=== PATIENT | female | born 1975 | race Caucasian/White ===

== ENCOUNTER 2018-06-28 12:38 | Emergency (ER) | payer MEDICAID, SELFPAY ==
[2018-06-28 12:39] VITALS: BP 122/73; PULSE 81; RESP 18; TEMP 36.6; O2SAT 98; BMI 28.6
[2018-06-28 15:05] LABS: Absolute Lymphocyte Count 2.98 X10^3/ul (0.83-4.51); Absolute Neutrophil Count 5.3 X10^3/uL (2.0-7.7); Basophil# 0.05 X10^3/uL; Basophil% 0.5 % (0-1); Differential Indicated SCAN CRITERIA MET; Eosinophil# 0.21 X10^3/uL; Eosinophils% 2.2 % (0-5); Hematocrit 43.5 % (37-47); Hemoglobin 13.7 g/dl (12.0-15.0); Lymphocyte # 2.98 X10^3/ul (4.0); Lymphocyte % 31.9 % (19-41); Mean Corp Hgb Conc 31.5 g/gl (32-36); Mean Corpuscular Hgb 26.7 pg (27.0-32.0); Mean Corpuscular Volume 84.8 fL (81-99); Mean Platelet Vol. 9.7 fl (6.2-12.0); Monocyte# 0.75 X10^3/uL; Neutrophil # 5.33 X10^3/uL (2.7-7.7); Neutrophil % 57.2 % (47-70); POSITIVE COUNT NO; POSITIVE DIFFERENTIAL NO; POSITIVE MORPHOLOGY YES; Platelet Count 329 K/mm3 (150-450); RBC Distribution Width CV 20.3 % (11.6-14.6); RBC Distribution Width SD 62.2 fl (35.1-43.9); Red Blood Count 5.13 M/mm3 (4.2-5.4); White Blood Count 9.3 K/mm3 (4.4-11.0)
[2018-06-28 15:18] LABS: ALB/GLOB Ratio 1.1 RATIO (0.9-2.4); AST(SGOT) 14 U/L (15-37); Alanine Aminotransfer ALT/SGPT 24 U/L (13-56); Albumin, Serum 3.9 g/dL (3.2-5.0); Alkaline Phosphatase 68 U/L (45-117); Anion Gap 8 (5-15); BUN 25 mg/dL (7-18); BUN/Creat Ratio 27.2 RATIO (10-20); Calcium,Total 8.6 mg/dL (8.5-10.1); Chloride 105 mmol/L (98-107); Creatinine, Serum 0.92 mg/dL (0.55-1.02); EST Glomerular Filtration Rate 70 mL/min (>60); Est Glom Filt Rate - Afr Amer 85 mL/min (>60); Estimated Creatinine Clearance 73.05 ml/min; Globulin 3.6 g/dL (2.2-4.2); Glucose 89 mg/dL (74-106); Potassium 3.9 mmol/L (3.5-5.1); Protein, Total 7.5 g/dL (6.4-8.2); Sodium Level 142 mmol/L (136-145)
[2018-06-28 15:22] LABS: Anisocytosis 1+; Platelet Estimate ADEQUATE (ADEQ); Platelet Morphology LARGE
--- NOTE | 2018-06-28 15:22 | ED.VISSUMM ---
- ER Visit Summary Date of Service: 06/28/18 Chief Complaint: Tired History of Present Illness: The patient is a 42 F presenting with fatigue for the last 2-3 days. She has no specific complaints, just feels that she is very tired and has not been sleeping much because she started using cocaine and marijuana again. She states that she has been working 18-19 hours per day at 2 different jobs and pulling double shifts. She has not been sleeping very much from that standpoint and she relapsed on to cocaine and marijuana after being clean for 10 years. She states that she has been staying awake most of the nights using drugs and therefore is much more tired during the day. She denies any suicidal thoughts or ideation. She has a history of depression/ anxiety but denies any changes in these symptoms. She is not concerned at all for harming herself and denies any significant increase in depression or thoughts of harming others. She basically thinks that she is overdoing it and needs a few days off. Physical Examination: Vitals are within normal limits. She is not in distress. Neck is supple. Heart tones are regular and without murmur. Lungs are clear bilaterally. Abdomen is soft and nontender. No focal or lateralizing neuro findings. Speech is clear. Thought content is normal. She does not appear intoxicated. She has no suicidal thoughts or ideation. She is future oriented. Test Results: CBC and CMP both within normal limits Emergency Department Course and Treatment: She is not in distress. No evidence of infection. Neurologic exam is normal. No suicidal thoughts or ideation. Does not appear to be at risk for self-harm. She looks well. I feel she can safely be discharged home and follow closely as an outpatient. I talked with her at length regarding her drug use and she is not interested in a formal detox/rehabilitation program at this time and is confident that she can quit on her own. She states that she has a strong family support system and several people that she can call on for help. She will return if she is any worse or if she has any thoughts of depression/self-harm. Treatment Plan: Follow-up as an outpatient Disposition: Home stable condition Impression: Initial encounter fatigue, drug abuse This note was generated with [employer] software. It may contain incorrect words, spelling, and punctuation that were not noted in review of the chart prior to signing ED Disposition - Plan for ED Patient: Chief Complaint: Fatigue Instructions: ED Weakness [facility] Referrals: Vikas Parra MD [Primary Care Provider] - 2 Days
[2018-06-28 15:30] VITALS: BP 128/72; PULSE 83; RESP 16; O2SAT 98
== END 2018-06-28 15:39 | disposition home or self-care (01) ==
PROVIDERS: Emergency Provider Emergency Medicine; Family Provider Family Medicine; PCP Family Medicine
DX: R53.83 Other fatigue (principal); F14.10 Cocaine abuse, uncomplicated; F12.10 Cannabis abuse, uncomplicated; K21.9 Gastro-esophageal reflux disease without esophagitis; F41.9 Anxiety disorder, unspecified; F32.9 Major depressive disorder, single episode, unspecified; E03.9 Hypothyroidism, unspecified; Z79.899 Other long term (current) drug therapy; Z72.0 Tobacco use
CPT/HCPCS: 80053; 85025; 99283

== ENCOUNTER 2019-06-08 08:28 | Emergency (ER) | payer MEDICAID, SELFPAY ==
[2019-06-08 08:28] VITALS: BP 136/74; PULSE 79; RESP 18; TEMP 36.6; O2SAT 100; BMI 31.3
--- NOTE | 2019-06-08 08:36 | RAD_ITS ---
STUDY: X-RAY - RIGHT KNEE REASON FOR EXAM: Female, 43 years old. Several day history of knee pain. No known injury. TECHNIQUE: 4 view(s) of the knee. COMPARISON: None. FINDINGS: Normal visualized distal femur. Normal visualized proximal tibia and fibula. Normal proximal tibiofibular articulation. Normal medial femorotibial compartment. Normal lateral femorotibial compartment. Normal patellofemoral articulation. Small joint effusion. RAD/Knee 4 or More Views IMPRESSION: Small joint effusion. Electronically Signed: Delfino Salazar, at 9:28 EDT , Service support ,
--- NOTE | 2019-06-08 08:36 | ED.DCSUM_ITS ---
History of Present Illness Chief Complaint: Lower Extremity Injury Informant: Patient Occurred: Weeks Onset: Days, Weeks Context: Gradual Onset Timing: Intermittent Quality of Pain: Aching Current Severity: 5/10 Associated Symptoms: Negative for: Parasthesia, Weakness, Loss of Funtion Narrative: The patient presents to the emergency department with atraumatic right knee pain. She states that she has underlying Achilles tendon difficulties. She is been wearing a boot orthosis. She states since then, she feels like her knee has been having problems. She states from time to time, and will give out on her. It is not locking. She states that it is worse if she bears weight for a long period of time. She denies any direct trauma. She denies any fevers or chills. She has been taking anti-inflammatories. Prior similar symptoms: No Recent Illness/Hospitalization: No Past Medical History - Allergies and Home Meds Allergies/Adverse Reactions: Allergies Sulfa (Sulfonamide Antibiotics) Adverse Reaction (Verified 06/08/19 08:39) Other Primary Care Physician: Vikas Parra MD [Primary Care Provider] - Prior records reviewed: Yes Past Medical History: - - arthritis Surgical History: no surgical history Smoking Status: Current every day smoker Alcohol: None Drugs: None Review of Systems General: Denies: Chills, Fever, Sweats Eyes: Denies: Visual changes - bilaterally, Diplopia ENT: Denies: Rhinorrhea, Sore throat Cardiovascular: Denies: Chest pain, Palpitations Respiratory: Denies: Dyspnea, Cough, Dyspnea on exertion Gastrointestinal: Denies: Abdominal pain, Nausea, Vomiting, Diarrhea, Melena, Hematochezia Genitourinary: Denies: Dysuria, Hematuria, Frequency Musculoskeletal: Reports: Arthralgias, Extremity Pain Skin: Denies: Rash, Wounds Neurological: Denies: Headache, Weakness, Numbness Physical Exam Vital Signs/Narrative: Vital Signs Temp Pulse Resp BP Pulse Ox 06/08/19 08:28 97.9 F 79 18 136/74 H 100 Inital Vital Signs reviewed: Yes - Extremity Exam Right Femur: Negative for: Abrasion, Contusion, Deformity, Edema, Hematoma, Limited ROM, - Left Femur: Negative for: Abrasion, Contusion, Deformity, Edema, Hematoma, Limited ROM, - Right Knee: Limited ROM - Patient is a small effusion in the medial aspect of the knee. Extension and flexion are preserved. There is no gross laxity. There is no erythema. Drawer testing is negative. Pulses are normal. Right Tib fib: Negative for: Abrasion, Contusion, Deformity, Edema, Hematoma, Limited ROM, - Left Tib Fib: Negative for: Abrasion, Contusion, Deformity, Edema, Hematoma, Limited ROM, - Right Ankle: Negative for: Abrasion, Contusion, Deformity, Edema, Hematoma, Limited ROM, - Left Ankle: Negative for: Abrasion, Contusion, Deformity, Edema, Hematoma, Limited ROM, - General: Well nourished, Well developed Head: Normocephalic, Atraumatic Eyes: Perrl, EOMI ENT: No Trauma, Moist Mucous Membranes Neck: Nontender, Full ROM Cardiovascular: Regular rate, Regular rhythm, No murmurs Respiratory: No distress, CTA bilaterally, Chest nontender Abdomen: Soft, Nontender, Nondistended, Normal bowel sounds Back: Nontender Skin: Normal color, No rash Neurological: Alert, Oriented x3, Cranial nerves II-XII grossly intact, Normal Strength, Normal Sensation Psychological: Normal affect Diagnostic/Tx/Re-eval Clinical Impression(s) from Imaging Studies Knee X-Ray 06/08/19 08:36 IMPRESSION: Small joint effusion. Electronically Signed: Delfino Martin, at 9:28 EDT , Service support , - Medical Decision Making The patient presents to the emergency department with right knee pain. Flexion and extension are preserved. There is a small effusion, but no erythema. My suspicion is that this is likely overuse she has been wearing a boot orthosis and it is affected her gait. Plain films were obtained which demonstrate a sma ll effusion, but no evidence of acute fracture. The patient was placed in an Mick wrap and will be continued on anti-inflammatories. She is comfortable with this plan of care and will be discharged home. Impression 1. Right knee effusion ED Disposition - Plan for ED Patient: Instructions: Knee Effusion Prescriptions: Naproxen [Naprosyn] 500 mg PO BID #14 tab Prescription Printed Referrals: Vikas Parra MD [Primary Care Provider] -
== END 2019-06-08 09:52 | disposition home or self-care (01) ==
PROVIDERS: Emergency Provider Emergency Medicine; Family Provider Family Medicine; PCP Family Medicine
DX: M25.461 Effusion, right knee (principal); M25.561 Pain in right knee; F17.200 Nicotine dependence, unspecified, uncomplicated
CPT/HCPCS: 73564; 99281; 99282

== ENCOUNTER 2019-11-29 16:03 | Emergency (ER) | payer MEDICAID, SELFPAY ==
[2019-11-29 16:04] VITALS: BP 133/80; PULSE 104; RESP 16; TEMP 35.9; O2SAT 97; BMI 35.2
--- NOTE | 2019-11-29 16:22 | ED.VISSUMM ---
- ER Visit Summary Date of Service: 11/29/19 Chief Complaint: Abscess History of Present Illness: The patient is a 44 F presenting with abscess left side. Patient has a cyst that she states she has had for the past 3 years. She states it has been infected requiring drainage in the past. She was told in the past that it may come back. She has not followed up with a surgeon. She states for the past 2 days she has had increasing pain and redness. Denies fever or other complaints. Physical Examination: Vitals are stable. Patient is afebrile. Alert no acute distress. HEENT exam is unremarkable. Neck is supple. Lungs are clear and equal bilaterally. Heart is regular rate and rhythm. Abdomen is soft nontender nondistended. 3 cm fluctuant abscess left lateral upper abdomen. No surrounding erythema. Extremities are unremarkable. Skin is warm and dry. No focal neurologic deficit. Remainder of exam is unremarkable. Emergency Department Course and Treatment: I&D was performed. Anesthetized with lidocaine. Incised with 11 blade. Moderate amount of pus was drained. Irrigated with saline. Patient tolerated this well. She is given general surgery referral. Advised to return to ED for worsening complaints. Disposition: Discharge Impression: Abscess, I&D This note was generated with [employer] dictation software. It may contain incorrect words, spelling, and punctuation that were not noted in review of the chart prior to signing ED Disposition - Plan for ED Patient: Instructions: ABSCESS, Incision and Drainage Prescriptions: Clindamycin [Cleocin] 300 mg PO 4X/DAY #80 cap Prescription Printed Referrals: Daljit De Anda MD [STAFF PHYSICIAN] -
--- NOTE | 2019-11-29 16:26 | ED.DEP ---
ED Disposition - Plan for ED Patient: Instructions: ABSCESS, Incision and Drainage Prescriptions: Clindamycin [Cleocin] 300 mg PO 4X/DAY #80 capsule Referrals: Daljit De Anda MD [STAFF PHYSICIAN] -
[2019-11-29] MEDS: Clindamycin HCl 150 MG Capsule 300 MG PO (16:31)
== END 2019-11-29 16:59 | disposition home or self-care (01) ==
LOC: ED 16:50
PROVIDERS: Emergency Provider Emergency Medicine
DX: L02.211 Cutaneous abscess of abdominal wall (principal); Z87.891 Personal history of nicotine dependence
CPT/HCPCS: 10060; 99283

== ENCOUNTER → 2020-08-04 15:29 | Outpatient (CLI) | payer MEDICAID, SELFPAY | PROVIDERS: PCP Family Medicine; Referring Provider Family Medicine; Visit Provider Family Medicine | DX: Z72.51 High risk heterosexual behavior (principal) | CPT/HCPCS: 36415 ==

== ENCOUNTER → 2020-08-15 12:51 | Outpatient (CLI) | payer MEDICAID, SELFPAY ==
[2020-08-15 14:15] LABS: HIV - WCH Non-Reactive (Nonreactive)
== END ==
PROVIDERS: PCP Family Medicine; Visit Provider Family Medicine
DX: Z72.51 High risk heterosexual behavior (principal)
CPT/HCPCS: 36415; 86703

== ENCOUNTER 2021-02-14 15:00 | Outpatient (RCR) | payer MEDICAID, SELFPAY ==
--- NOTE | 2021-01-30 07:43 | HP.PTEVAL_ITS ---
Patient's Visit Information DANIE PATTERSON is a 45 year old F referred to Physical Therapy by SLADE ARMENTA with a diagnosis of R achilles tendonitis, L plantar fascitis. Date of Evaluation: 01/24/21 Physical Therapist: Clovis Upton DPT - Visit Plan Frequency: 2-3x /Week Duration: 4-6 Weeks Plan: Start with B Df stretching (frequently), R eccentric strength of achilles/calf. L foot intrinsic strengthening. May use DN, cross friction, and foot/ankle mobilization to reduce initial symptoms. - Subjective Pt. is here today for her initial evaluation with diagnosis of R achiles tendonitis and L plantar fascitis. Pt. reports having R achilles pain for awhile, ~1 year, but is now having increased L plantar fasciatis. She believes her L foot pain started when she was wearing a CAM boot for her R foot. No mech of injury otherwise, no trauma noted. She did buy new shoes which has helped a bit. Pt. has not been stretching or doing any exercises for either foot. Pt. initial mentioned doing aquatic therapy, but there was nothing noting this on the script. Pt. works at [employer], but has been off work for a week or so due to her foot pain. Pt. is to go back to work in a few weeks at light duty progressing to full. Pt. denies N/T in either foot. Pt. is hopeful to reduce her symptoms in order to get back to work with out limitations. - Pain R achilles Pain Intensity (Out of 10): 3 Pain Intensity Range: 1, 6 L plantar fascia Pain Intensity (Out of 10): 3 Pain Intensity Range: 1, 8 - Objective POSTURE: pt. has normal wt. shift between bilateral LEs. Pt. has B equinus foot with B hindfoot vlagus. Pt. has normal DERICK in stance. PALPATION: Pt. is tender at R achilles tendon from attachment to muscle-tendon junction. She is also tender at L medial plantar fascia and longitudinal arch. No calcaneal pain or achilles pain on L side. NEURO: normal throughout bilateral LEs. ROM: Pt. has normal ROM of bilateral ankles, except tightness with B DF 10deg on R and 8deg of L. Pt. reports increased pain with overpressure into DF. GAIT: Pt. ambulates with increased toeing bilaterally. Pt. has early heel off with B feet during pre swing. STAIRS: early heel off with descending bilaterally. SPECIAL TESTING: L + windlass testing. - Goals Goal 1:: LTG: Pt. to be I with HEP. Goal Time Frame: 4-6 Weeks Goal 2:: STG: Pt. to have decreased pain to 0-2/10 pain in B feet/ankles with initial walking in AMs. Goal Time Frame: 2-4 Weeks Goal 3:: LTG: pt. to ambulate unlimited distances without increase in symptoms in either feet/ankle. Goal Time Frame: 4-6 Weeks Goal 4:: LTG: pt. to have atleast 15deg of B ankle DF. Goal Time Frame: 4-6 Weeks Goal 5:: LTG: pt. to resume all work duties without increase in symptoms. Goal Time Frame: 4-6 Weeks - Rehabilitation Potential Physical Therapy Diagnosis: Pt. has signs and symptoms consistent with R achilles tendonitis, L plantar fascitis. Pt. is stiff through bilateral calves and has increased pain with DF and initial walking. Pt. would beneift from PT to work on stretching, tissue remodeling with eccentrics and with modalitis to reduce initial symptoms. Rehabilitation Potential: Excellent - Anticipated Interventions Patient/Client Instruction: Educate patient on: Condition, Plan of Care, Risk Factors, Benefits of Fitness Program For the Purpose of:: To facilitate caregiver knowledge, To improve self management, To prevent re-injury, To improve ability to perform tasks related to life management, To improve tolerance to ADL's Therapeutic Exercise to Include: Strength training, Power training, Endurance training, Postural training, Flexibilty training, Gait and locomotor training, Passive ROM, Active ROM For the Purpose of:: To decrease pain, To decrease swelling/inflammation, To increase ROM, To improve nutrient delivery to tissue, To increase oxygenation perfusion, To improve muscle performance and motor function, To improve ability to perform ADL's, To improve gait and locomotor functions, To improve health of tissue, To decrease soft tissue restriction, To increase flexibility/ROM Manual Therapy Techniques to Include: Scar massage, Mobilization, Passive ROM, Functional dry needling, Soft tissue mobilization Comment: cross friction massage For the Purpose of:: To decrease pain, To decrease swelling/inflammation, To increase ROM, To improve muscle performance and motor function, To improve health of tissue, To decrease soft tissue restriction, To increase flexibility/ROM Thank you for the opportunity to evaluate your patient. For Medicare and Medicare HMO plans, please review the plan of care and approve it. It will need to be FAXED BACK to us at [phone] for Medicare purposes. For Medicare only, by signing this I certify the plan of care. Please let me know if there are questions or concerns regarding this plan of care. Physician Signature: Date:
--- NOTE | 2021-02-10 10:19 | HP.PTREVAL ---
SLADE ARMENTA, It has been my pleasure to treat DANIE PATTERSON over the last 3 visits for R achilles tendonitis, L plantar fascitis. Please see the progress note below for an update on the physical therapy plan of care! Subjective: Pt. reports overall I feeling a little better. She reports stretching at home better this week. She did miss her last appointment do to being sick. She reports that she really wants to go back to work. She is hoping to work atleast 5 hours a day. Objective/Function: Pt. reports decreased pain post PT. Pt. is to stretch a lot at home. I showed her some stretching she could do at work as well. She really wanted to get back to work for financial reasons and to stay active. She has imrpoved with her ROM and tolerance. She did mention about doing aquatic therapy. She thinks this may allow her to walk better. I still think that stretching, modalities progressing to strengthening would be the best course. I am okay with doing the stretching and strengtheing in the aquatic setting, but did mention that getting in pool independently would sally the best course of action. Plan Plan: Start with B Df stretching (frequently), R eccentric strength of achilles/calf. L foot intrinsic strengthening. May use DN, cross friction, and foot/ankle mobilization to reduce initial symptoms. Goals Goal 1:: LTG: Pt. to be I with HEP. Goal Time Frame: 4-6 Weeks Goal 2:: STG: Pt. to have decreased pain to 0-2/10 pain in B feet/ankles with initial walking in AMs. Goal Time Frame: 2-4 Weeks Goal 3:: LTG: pt. to ambulate unlimited distances without increase in symptoms in either feet/ankle. Goal Time Frame: 4-6 Weeks Goal 4:: LTG: pt. to have atleast 15deg of B ankle DF. Goal Time Frame: 4-6 Weeks Goal 5:: LTG: pt. to resume all work duties without increase in symptoms. Goal Time Frame: 4-6 Weeks Anticipated Interventions Patient/Client Instruction: Educate patient on: Condition, Plan of Care, Risk Factors, Benefits of Fitness Program For the Purpose of:: To facilitate caregiver knowledge, To improve self management, To prevent re-injury, To improve ability to perform tasks related to life management, To improve tolerance to ADL's Therapeutic Exercise to Include: Strength training, Power training, Endurance training, Postural training, Flexibilty training, Gait and locomotor training, Passive ROM, Active ROM For the Purpose of:: To decrease pain, To decrease swelling/inflammation, To increase ROM, To improve nutrient delivery to tissue, To increase oxygenation perfusion, To improve muscle performance and motor function, To improve ability to perform ADL's, To improve gait and locomotor functions, To improve health of tissue, To decrease soft tissue restriction, To increase flexibility/ROM Manual Therapy Techniques to Include: Scar massage, Mobilization, Passive ROM, Functional dry needling, Soft tissue mobilization Comment: cross friction massage For the Purpose of:: To decrease pain, To decrease swelling/inflammation, To increase ROM, To improve muscle performance and motor function, To improve health of tissue, To decrease soft tissue restriction, To increase flexibility/ROM Please do not hesitate to contact me at [phone] by phone or if you have questions or concerns regarding this new plan of care! Sincerely, Clovis Upton DPT
== END 2021-02-14 19:00 | disposition home or self-care (01) ==
LOC: PT 15:00
PROVIDERS: PCP Family Medicine
DX: M76.61 Achilles tendinitis, right leg (principal)
CPT/HCPCS: 97035; 97110; 97140; 97161

== ENCOUNTER 2022-10-26 06:59 | Emergency (ER) | payer MEDICAID, SELFPAY ==
[2022-10-26 07:00] VITALS: BP 145/118; PULSE 62; RESP 16; TEMP 35.8; O2SAT 100; BMI 29.2
--- NOTE | 2022-10-26 07:39 | ED.VIS.GI ---
HPI HPI - GI History of Present Illness Chief Complaint: Abd Pain Informant: patient Abdominal Pain/Flank Pain Onset: Weeks (1.5) Context: Gradual Onset Timing: Waxes and wanes Quality: Sharp and Stabbing Location: LLQ Worsened by: Nothing Relieved by: Nothing Nausea/Vomiting/Emesis GI Symptom: Negative for Nausea or Vomiting Diarrhea/Melena/Hematochezia GI Symptom: Negative for Diarrhea or Hematochezia Associated Symptoms Associated Symptoms: Negative for Dysuria, Frequency or Hematuria Narrative Narrative: Patient presents with left lower quadrant abdominal pain that has been gradually getting worse over the past week and a half. Patient states it was intermittent now it is more constant. Patient states that it waxes and wanes. Patient describes her pain as sharp. Patient states it is localized to the left lower quadrant but radiates into her back. Patient states nothing makes it worse and nothing makes it better. Patient states she felt like she was constipated and tried laxatives with no improvement. Patient denies any nausea or vomiting. Patient denies any diarrhea. Patient states her stools have been dark but she is on iron. Patient denies any dysuria or hematuria. [facility] Medical History ADD (attention deficit disorder) Anxiety Bipolar 1 disorder Hyperlipidemia Home Medications acyclovir 400 mg tablet (Zovirax) 400 mg PO DAILY 06/28/18 [History Last Taken Unknown] omeprazole 40 mg capsule,delayed release 40 mg PO DAILY 06/28/18 [History Last Taken Unknown] bupropion HCl 100 mg tablet 350 mg PO DAILY 11/29/19 [History Last Taken Unknown] clindamycin HCl 150 mg capsule 300 mg PO 4X/DAY #80 caps 11/29/19 [Rx Last Taken Unknown] clonidine HCl 0.1 mg tablet 0.1 mg PO BID 11/29/19 [History Last Taken Unknown] doxepin 75 mg capsule 75 mg PO DAILY 11/29/19 [History Last Taken Unknown] oxcarbazepine 300 mg tablet 300 mg PO BID 11/29/19 [History Last Taken Unknown] varenicline 1 mg tablet 1 mg PO BID 11/29/19 [History Last Taken Unknown] hydrocodone-acetaminophen 5-325mg 5mg-325mg 1 tab PO Q6H PRN PRN Pain 3 days #10 TABLETS 10/26/22 [Rx Last Taken Unknown] Allergy/AdvReac Type Severity Reaction Status Date / Time Sulfa (Sulfonamide AdvReac Other Verified 10/26/22 07:03 Antibiotics) Surgical History Hx of section Hx of cholecystectomy Hx of tubal ligation Social History Smoking Status: Current some day smoker tobacco type: cigarettes ROS ROS ED Constitutional Constitutional ED: Denies chills or fever(s) Eyes Eyes: Denies blurry vision or change in vision ENT ENT ED: Reports rhinorrhea; Denies sore throat Cardiovascular Cardiovascular: Denies chest pain or palpitations Respiratory/Chest Respiratory/Chest: Reports cough; Denies dyspnea Gastrointestinal Gastrointestinal: Reports abdominal pain and constipation; Denies nausea or vomiting Genitourinary Genitourinary ED: Denies dysuria or hematuria Musculoskeletal Musculoskeletal: Reports back pain; Denies neck pain Integumentary Denies abscess or rash Neurologic Neurologic: Reports headache(s); Denies weakness Allergic/Immunologic Allergic/Immunologic ED: Denies mouth swelling or urticaria EXAM Physical Exam Const Vital Signs: 10/26/22 07:00 10/26/22 13:52 Temperature 96.4 F L Temperature Source Temporal Pulse Rate 62 65 Respiratory Rate 16 16 Blood Pressure 145/118 H 131/80 H Blood Pressure Mean 127 97 Pulse Ox 100 100 Oxygen Delivery Method Room Air Room Air Positive well nourished and well developed General Appearance ED: well developed HEENT Reports moist mucous membranes Neck supple and no JVD Resp normal respiratory effort and clear to auscultation bilaterally Cardio regular rate, regular rhythm and no murmurs GI normal to inspection, nondistended, normoactive bowel sounds Palpation: soft and tender LLQ; Negative for guarding or rebound tenderness present Extremity normal to inspection General Extremety ED: Negative for edema or tenderness General Extremity: Negative for edema Neuro oriented x3, CN's II-XII intact bilaterally and no sensory deficits noted Sensorium / Orientation: alert Motor Exam: strength 5/5 throughout Psych mental status grossly normal Skin no rashes or lesions noted MDM MDM MDM Narrative Medical decision making narrative: Patient was given IV fluids. Patient was given morphine and Zofran. CBC was within normal limits. Comprehensive metabolic profile was within normal limits. Urinalysis does not show any evidence of urinary tract infection or hematuria. Lipase was normal. CT scan of the abdomen and pelvis was obtained. There is a nonspecific fluid collection in the fundus of the uterus. This could be fluid collection or abscess. Recommendation for follow-up with pelvic ultrasound and test was recommended. This was interpreted by the radiologist and reviewed by myself. Serum hCG was obtained and was negative. Pelvic ultrasound was obtained and showed a 2.4 x 3.3 x 1.9 cm hypoechoic area within the uterus. This could be a cyst or hematoma. Abscess is less likely. Given the patient's normal white blood cell count and labs, I do not feel that antibiotics are necessary at this time. Patient was given a prescription for a short course of [place]. Patient was instructed to follow-up with her [employer] in 3 to 5 days. Patient understood and was agreeable with the plan. All questions were answered. Lab Data Attestation: I reviewed the patient's lab results. Labs: Laboratory Results - last 24 hr 10/26/22 10/26/22 10/26/22 07:50 08:00 08:00 WBC 8.6 RBC 4.82 Hgb 14.6 Hct 43.7 MCV 90.7 MCH 30.3 MCHC 33.4 RDW Std Deviation 44.7 H RDW Coeff of [place] 13.2 Plt Count 330 MPV 9.4 Immature Gran % (Auto) 0.400 Neut % (Auto) 72.0 H Lymph % (Auto) 20.2 [place] % (Auto) 5.7 Eos % (Auto) 1.2 Baso % (Auto) 0.5 Absolute Neuts (auto) 6.2 Absolute Lymphs (auto) 1.73 Nucleated RBC % 0 Sodium 137 Potassium 3.5 Chloride 103 Carbon Dioxide 29.0 Anion Gap 5 BUN 15 Creatinine 0.82 Estim Creat Clear Calc 81.59 Est GFR (MDRD) Af Amer 96 Est GFR (MDRD) Non-Af 79 BUN/Creatinine Ratio 18.4 Glucose 94 Calcium 8.7 Total Bilirubin 0.40 AST 10 L ALT 21 Alkaline Phosphatase 71 Total Protein 7.6 Albumin 3.7 Globulin 3.9 Albumin/Globulin Ratio 0.9 Lipase 87 Serum , Qual Urine Color Yellow Urine Clarity Sl. Cloudy Urine pH 7.0 Ur Specific [place] 1.015 Urine Protein 15 H Urine Glucose (UA) Normal Urine Ketones 5 H Urine Occult Blood Negative Urine Nitrite Negative Urine Bilirubin Negative Urine Urobilinogen Normal Ur Leukocyte Esterase 25 H Urine RBC 0 SEEN Urine WBC 0-5 SEEN Ur Squamous Epith Cells 0-5 SEEN Urine Bacteria 1+ Urine Mucus 0 SEEN 10/26/22 10:30 WBC RBC Hgb Hct MCV MCH MCHC RDW Std Deviation RDW Coeff of [place] Plt Count MPV Immature Gran % (Auto) Neut % (Auto) Lymph % (Auto) [place] % (Auto) Eos % (Auto) Baso % (Auto) Absolute Neuts (auto) Absolute Lymphs (auto) Nucleated RBC % Sodium Potassium Chloride Carbon Dioxide Anion Gap BUN Creatinine Estim Creat Clear Calc Est GFR (MDRD) Af Amer Est GFR (MDRD) Non-Af BUN/Creatinine Ratio Glucose Calcium Total Bilirubin AST ALT Alkaline Phosphatase Total Protein Albumin Globulin Albumin/Globulin Ratio Lipase Serum , Qual NEGATIVE Urine Color Urine Clarity Urine pH Ur Specific [place] Urine Protein Urine Glucose (UA) Urine Ketones Urine Occult Blood Urine Nitrite Urine Bilirubin Urine Urobilinogen Ur Leukocyte Esterase Urine RBC Urine WBC Ur Squamous Epith Cells Urine Bacteria Urine Mucus Radiography Diagnostic Testing: Clinical Impression(s) from Imaging Studies Abdomen/Pelvis CT 10/26/22 07:42 IMPRESSION: 1. Nonspecific 3.6 x 2.3 cm peripherally enhancing fluid attenuation area in the fundal uterus. This could represent loculated fluid within the endometrium although abscess or developing gestational sac cannot be excluded. Further assessment with pelvic ultrasound is recommended. 2. No other acute findings in the abdomen or pelvis. Electronically Signed: Abilio Hoyos, at 10:12 EST , Transvaginal US 10/26/22 11:22 IMPRESSION: 1. 2.4 x 3.3 x 1.9 cm hypoechoic area in the uterus. This appears to be within the uterus although endometrial inclusion is difficult to entirely assess. Given patient''s history of prior ablation, findings could represent a complicated cyst or hematoma in setting of post ablation changes although abscess is difficult to entirely exclude. Additional considerations include uterine fibroid. Comparison with prior pelvic imaging if available is recommended. 2. 3.0 cm likely left ovarian hemorrhagic cyst. Follow-up in 2-3 menstrual cycles recommended. 3. Normal flow to both ovaries. Electronically Signed: Abilio Hoyos, at 13:52 EST , Discharge Plan Triage Chief Complaint: Abd Pain Other Complaint: Other, Pain/Inj ED Provider: Larry Adam Dx/Rx/DC Orders Clinical Impression: Pelvic pain, Cyst of uterus Instructions: ED Pelvic Pain, Unknown Cause Prescriptions: New hydrocodone-acetaminophen [hydrocodone-acetaminophen] 5-325 mg tablet 1 tab PO Q6H PRN PRN (Reason: Pain) 3 Days Qty: 10 0RF No Action acyclovir [Zovirax] 400 MG tablet 400 mg PO DAILY omeprazole 40 MG capsule,delayed release(DR/EC) 40 mg PO DAILY clonidine HCl 0.1 MG tablet 0.1 mg PO BID Label Comments: take 1 tablet by mouth twice a day doxepin 75 MG capsule 75 mg PO DAILY oxcarbazepine 300 MG tablet 300 mg PO BID bupropion HCl 100 MG tablet 350 mg PO DAILY varenicline 1 MG tablet 1 mg PO BID Label Comments: take 1 tablet by mouth twice a day clindamycin HCl 150 MG capsule 300 mg PO 4X/DAY Qty: 80 0RF Primary Care Provider: Care Physician,No Primary Referrals: Angie Pisano MD [Med Staff - Active Staff] - 3-5 Days Care Physician,No Primary [Primary Care Provider] - Disposition Disposition: Home, Self Care
--- NOTE | 2022-10-26 07:42 | CT_ITS ---
INDICATION: Abdominal pain -- IV PO Contrast EXAMINATION: CT ABDOMEN AND PELVIS WITH CONTRAST - CT Abdomen And Pelvis W/ Contrast Injection TECHNIQUE: Helically acquired images were obtained of the abdomen and pelvis following IV contrast. A radiation dose optimization technique was used for this scan. IV Contrast dosage and agent: 100 cc of ISOVUE-300 Oral contrast: GASTROGRAFIN COMPARISON: None. FINDINGS: Lower thorax: Visualized lung bases are clear. Liver: Normal morphology. No acute findings. Gallbladder: Cholecystectomy. No significant bile duct dilation. Spleen: Unremarkable. Pancreas: No parenchymal lesions or duct dilation. Adrenal glands: Unremarkable. Kidneys: No cystic or solid masses. No hydronephrosis. No acute findings. Bladder: Normal appearance. GI tract: Oral contrast reaches the sigmoid colon. No significant wall thickening or bowel dilation. Normal appendix. No acute findings. Peritoneum/mesentery/retroperitoneum: No free air or free fluid. No masses or lymphadenopathy. Pelvis: There is a nonspecific 3.6 x 2.3 cm peripherally enhancing fluid attenuation area in the fundal uterus. No free air or free fluid. No masses or lymphadenopathy. Vascular: No acute findings. Bones/soft tissues: No acute fracture or subluxation. No destructive osseous lesions. Remote right pubic bone fracture deformity. Soft tissues are unremarkable. CT/Abdomen/Pelvis WITH Contrast IMPRESSION: 1. Nonspecific 3.6 x 2.3 cm peripherally enhancing fluid attenuation area in the fundal uterus. This could represent loculated fluid within the endometrium although abscess or developing gestational sac cannot be excluded. Further assessment with pelvic ultrasound is recommended. 2. No other acute findings in the abdomen or pelvis. Electronically Signed: Abilio Hoyos, at 10:12 EST ,
[2022-10-26] MEDS: Ondansetron 4 MG/2 ML Vial IV (07:54)
[2022-10-26] MEDS: Morphine 4 MG/ML Syringe IV (07:54)
[2022-10-26] MEDS: 0.9% Normal Saline 1,000 ML 1000 ML IV (07:54)
[2022-10-26] MEDS: Contrast Allergy Safety Check IV (07:55)
[2022-10-26 07:58] LABS: Mucous, Urine 0 SEEN /hpf (<or=2+); Red Blood Cells-Urine 0 SEEN /hpf (0-5)
[2022-10-26 08:07] LABS: Absolute Lymphocyte Count 1.73 X10^3/uL (0.83-4.51); Absolute Neutrophil Count 6.2 X10^3/uL (2.0-7.7); Basophil# 0.04 X10^3/uL; Basophil% 0.5 % (0-1); Eosinophils% 1.2 % (0-5); Hematocrit 43.7 % (37-47); Hemoglobin 14.6 g/dL (12.0-15.0); Lymphocyte # 1.73 X10^3/ul (0.83-4.51); Lymphocyte % 20.2 % (19-41); Mean Corp Hgb Conc 33.4 g/dL (32-36); Mean Corpuscular Hgb 30.3 pg (27.0-32.0); Mean Corpuscular Volume 90.7 fL (81-99); Mean Platelet Vol. 9.4 fl (6.2-12.0); Monocyte# 0.49 X10^3/uL; Monocyte% 5.7 % (0-10); NRBC Flagged by Analyzer 0 % (0-5); Neutrophil # 6.17 X10^3/uL (2.7-7.7); Platelet Count 330 K/mm3 (150-450); RBC Distribution Width CV 13.2 % (11.6-14.6); RBC Distribution Width SD 44.7 fl (35.1-43.9); Red Blood Count 4.82 M/mm3 (4.2-5.4); White Blood Count 8.6 K/mm3 (4.4-11.0)
[2022-10-26 08:18] LABS: Color, Urine Yellow (Yellow); Glucose, Dipstick Normal (Normal); Ketone-Dipstick 5 mg/dl (Negative); Leukocyte Esterase-Dipstick 25 /ul (Negative); Nitrite-Dipstick Negative (Negative); Occult Blood-Urine Negative /ul (Negative); Protein-Dipstick 15 mg/dl (Negative); Specific Gravity, Urine 1.015 (1.002-1.030); Urine Bilirubin Dipstick Negative (Negative); Urine Clarity Sl. Cloudy (Clear); Urine Urobilinogen Normal (Normal)
[2022-10-26 08:27] LABS: ALB/GLOB Ratio 0.9 RATIO (0.9-2.4); AST(SGOT) 10 U/L (15-37); Alanine Aminotransfer ALT/SGPT 21 U/L (13-56); Albumin, Serum 3.7 g/dL (3.2-5.0); Alkaline Phosphatase 71 U/L (45-117); Anion Gap 5 (5-15); BUN 15 mg/dL (7-18); BUN/Creat Ratio 18.4 RATIO (10-20); Calcium,Total 8.7 mg/dL (8.5-10.1); Chloride 103 mmol/L (98-107); Creatinine, Serum 0.82 mg/dL (0.55-1.02); EST Glomerular Filtration Rate 79 mL/min (>60); Est Glom Filt Rate - Afr Amer 96 mL/min (>60); Estimated Creatinine Clearance 81.59 ml/min; Globulin 3.9 g/dL (2.2-4.2); Glucose 94 mg/dL (74-106); Lipase 87 U/L (73-393); Potassium 3.5 mmol/L (3.5-5.1); Protein, Total 7.6 g/dL (6.4-8.2); Sodium Level 137 mmol/L (136-145)
[2022-10-26 08:36] LABS: Bacteria 1+ /hpf (None Seen); Squamous Epithelial Cells - UA 0-5 SEEN /hpf (5-10); White Blood Cells 0-5 SEEN /hpf (0-5)
[2022-10-26 11:10] LABS: Internal QC Validated? YES +Cl - CLEAR BKGD; Pregnancy, Serum, hCG Quali. NEGATIVE Negative
--- NOTE | 2022-10-26 11:22 | US_ITS ---
INDICATION: Fluid collection in uterus -- PAIN EXAMINATION: Ultrasound US Transvaginal Non-OB TECHNIQUE: Transvaginal (for optimal evaluation of the adnexa) pelvic ultrasound was performed. Grayscale, spectral waveform, and color flow Doppler evaluation of the adnexa. COMPARISON: None. FINDINGS: UTERUS: Anteverted. The uterus measures 9.0 x 6.1 x 5.4 cm. There is a 2.4 x 3.3 x 1.9 cm hypoechoic area in the uterus that demonstrates some posterior acoustic enhancement. This appears to be within the uterus although endometrial inclusion is difficult to entirely assess. The remainder of the endometrial stripe measures 6.0 in AP diameter which is within normal limits. RIGHT OVARY: 2.6 x 1.7 x 1.6 cm. Non-enlarged, normal echogenicity. There is normal arterial inflow and venous outflow present in the right ovary. LEFT OVARY: 4.0 x 2.0 x 2.1 cm. There is a 3.0 x 1.7 x 1.5 cm likely hemorrhagic left ovarian cyst. There is normal arterial inflow and venous outflow present in the left ovary. FREE FLUID: None. US/Transvaginal Non- IMPRESSION: 1. 2.4 x 3.3 x 1.9 cm hypoechoic area in the uterus. This appears to be within the uterus although endometrial inclusion is difficult to entirely assess. Given patient''s history of prior ablation, findings could represent a complicated cyst or hematoma in setting of post ablation changes although abscess is difficult to entirely exclude. Additional considerations include uterine fibroid. Comparison with prior pelvic imaging if available is recommended. 2. 3.0 cm likely left ovarian hemorrhagic cyst. Follow-up in 2-3 menstrual cycles recommended. 3. Normal flow to both ovaries. Electronically Signed: Abilio Hoyos, at 13:52 EST ,
[2022-10-26 13:52] VITALS: BP 131/80; PULSE 65; RESP 16; O2SAT 100
== END 2022-10-26 15:18 | disposition home or self-care (01) ==
PROVIDERS: Emergency Provider Emergency Medicine; Visit Provider Emergency Medicine
DX: N85.8 Other specified noninflammatory disorders of uterus (principal); E78.5 Hyperlipidemia, unspecified; R10.2 Pelvic and perineal pain; K59.00 Constipation, unspecified; R10.32 Left lower quadrant pain; R51.9 Headache, unspecified; F17.210 Nicotine dependence, cigarettes, uncomplicated
CPT/HCPCS: 74177; 76830; 80053; 81001; 83690; 84703; 85025; 96361; 96374; 96375; 99283; J7030; Q9967; A4216; J2405

== ENCOUNTER → 2023-06-13 | Outpatient (CLI) | payer MEDICAID, SELFPAY | END | disposition home or self-care (01) | LOC: SL 09:11 | PROVIDERS: PCP Nurse Practitioner Family; Referring Provider Nurse Practitioner Family; Visit Provider Nurse Practitioner Family | DX: R06.83 Snoring (principal); G47.30 Sleep apnea, unspecified; E66.9 Obesity, unspecified; K21.9 Gastro-esophageal reflux disease without esophagitis | CPT/HCPCS: 95801; 95806 ==

== ENCOUNTER → 2024-07-27 | Outpatient (CLI) | payer MEDICAID, SELFPAY ==
--- NOTE | 2024-07-27 07:56 | CT_ITS ---
STUDY: CT ABDOMEN AND PELVIS WITH CONTRAST REASON FOR EXAM: Female, 48 years old. LLQ PAIN, NAUSEA,DIARRHEA RADIATION DOSAGE (If Supplied By Facility): CTDIvol = ( 20.67 ) mGy, DLP = ( 1025.24 ) mGycm TECHNIQUE: Transaxial images were obtained from the dome of the diaphragm to the symphysis pubis with oral contrast. Oral and amp; IV Readi-CAT and amp; 100mL Isovue-370 was administered. Sagittal and coronal images were reconstructed. Individualized dose optimization techniques were used for this CT. COMPARISON: 10/26/2010 FINDINGS: The visualized lung bases are unremarkable. The visualized portions of the heart are within normal limits. Normal liver. There are surgical clips in the gallbladder fossa consistent with a prior cholecystectomy. Normal spleen. Normal pancreas. Normal bilateral adrenal glands. Normal right kidney. Normal left kidney. Normal visualized stomach. Normal small intestine. Normal colon. The appendix is visualized and appears normal. Normal abdominal aorta. Normal inferior vena cava. Normal retroperitoneum. Normal urinary bladder. Normal abdominal wall. Mild dextroscoliosis of the lumbar spine. CT/Abdomen/Pelvis WITH Contrast IMPRESSION: Normal enhanced CT of the abdomen and pelvis. Electronically Signed: Jewel Golden MD at 9:24 EDT ,
== END | disposition home or self-care (01) ==
LOC: CT 07:53
PROVIDERS: PCP Nurse Practitioner Family; Referring Provider Nurse Practitioner Family; Visit Provider Nurse Practitioner Family
DX: R19.7 Diarrhea, unspecified (principal); R10.32 Left lower quadrant pain; R11.0 Nausea
CPT/HCPCS: 74177; Q9967

== ENCOUNTER 2025-07-18 10:00 | Outpatient (CLI) | payer MEDICAID, SELFPAY | END 2025-07-18 23:59 | disposition home or self-care (01) | PROVIDERS: PCP Nurse Practitioner Family; Referring Provider Nurse Practitioner Family; Visit Provider Nurse Practitioner Family | DX: N89.8 Other specified noninflammatory disorders of vagina (principal); R82.90 Unspecified abnormal findings in urine | CPT/HCPCS: 87086; 87088 ==